=== PATIENT | male | born 1990 | race African-American/Black ===

== ENCOUNTER 2019-10-27 06:22 | Emergency (ER) | payer OTHER ==
[~2019-10-27] VITALS: Ht 167.6 cm; Wt 61.4 kg
[2019-10-27 07:25] VITALS: BP 137/69; PULSE 87; TEMP 97.8
== END 2019-10-27 07:25 | disposition home or self-care (01) ==
LOC: COL.ER 06:22
DX: T78.40XA Allergy, unspecified, initial encounter (principal); F17.210 Nicotine dependence, cigarettes, uncomplicated